=== PATIENT | female | born 1950 | race Caucasian/White ===

== ENCOUNTER 2024-02-22 13:00 | Inpatient (IN) | payer MEDICARE ==
[~2024-02-22] VITALS: Ht 154.9 cm; Wt 68.5 kg
[2024-02-22 14:14] LABS: APPEARANCE,URINE CLOUDY (CLEAR); BILIRUBIN,URINE NEGATIVE (NEGATIVE); COLOR,URINE YELLOW (YELLOW); GLUCOSE, URINE (UA) NEGATIVE (NEGATIVE); KETONES,URINE NEGATIVE (NEGATIVE); LEUKOCYTE ESTERASE ,URINE 25 Leu/uL (NEGATIVE); NITRATE,URINE NEGATIVE (NEGATIVE); OCCULT BLOOD,URINE NEGATIVE (NEGATIVE); PROTEIN,URINE 10 mg/dL (NEGATIVE); UROBILINOGEN,URINE 0.2 mg/dL (0.2-1.0)
[2024-02-22 14:18] LABS: ADD UA MICROSCOPIC YES
[2024-02-22 14:22] LABS: BACTERIA,URINE RARE /HPF (None Seen); MUCUS,URINE RARE LPF (None Seen); RBC,URINE 0-1 /HPF (0-1); SQUAMOUS EPITHELIAL CELL,UR MOD /HPF (0-2)
[2024-02-22 14:37] VITALS: BP 158/61; PULSE 77; RESP 18
[2024-02-22] MEDS ORDERED: AMLO-258 PO (14:44)
[2024-02-22] MEDS ORDERED: DIPH1TAB PO (14:44)
[2024-02-22] MEDS ORDERED: MESA1.2T3 PO (14:44)
[2024-02-22] MEDS ORDERED: ATOR10TA69 PO (14:44)
[2024-02-28] VITALS (26 sets, daily range): BP systolic 69–150; BP diastolic 45–72; PULSE 53–96; RESP 15–19; O2SAT 97
[2024-02-28] MEDS ORDERED: GENTAMICIN PROTOCOL PER PHARMACY IV SCH (06:00)
[2024-02-28] MEDS ORDERED: [UNRECOGNIZED DRUG - OTHER] IV ONE (09:00)
[2024-02-28] MEDS ORDERED: GENTAMICIN SULFATE IV ONE (09:00)
[2024-02-28] MEDS ORDERED: LIDOCAINE PF 100MG/5ML (2%) SYRINGE 5ML ONE (09:04)
[2024-02-28] MEDS ORDERED: GLYCOPYRROLATE 0.2 MG/ML 5 ML VIAL ONE (09:04)
[2024-02-28] MEDS ORDERED: NEOSTIGMINE METHYLSULFATE 1MG/ML IV ONE (09:04)
[2024-02-28] MEDS ORDERED: ONDANSETRON 4MG INJ ONE (09:04)
[2024-02-28] MEDS ORDERED: MIDAZOLAM HCL 1 MG/ML 2ML VIAL ONE (09:04)
[2024-02-28] MEDS ORDERED: SUCCINYLCHOLINE CHLORIDE 20 MG/ML 10 ML VIAL ONE (09:04)
[2024-02-28] MEDS ORDERED: DEXAMETHASONE SOD PHOSPHATE 10MG/ML 1ML VIAL ONE ×2 (09:04→10:43)
[2024-02-28] MEDS ORDERED: PROPOFOL 10 MG/ML 20ML VIAL IV ONE (09:05)
[2024-02-28] MEDS ORDERED: ROCURONIUM BROMIDE 10MG/1ML 5ML VL ONE (09:05)
[2024-02-28] MEDS ORDERED: FENTANYL CITRATE PF 50 MCG/1 ML 2ML VIAL ONE ×2 (09:06→12:06)
[2024-02-28] MEDS: LACTATED RINGERS 1000ML 1,000 ML IV ONE (09:23)
[2024-02-28] MEDS ORDERED: ALBUMIN (HUMAN) 5% 250 ML IV ONE (10:08)
[2024-02-28] MEDS ORDERED: TRANEXAMIC ACID 1000MG/10ML ONE (11:05)
[2024-02-28] MEDS ORDERED: EPINEPHRINE PF 1MG (1:1,000) 1 MG/ML AMP ONE (11:05)
[2024-02-28] MEDS ORDERED: CEFAZOLIN SODIUM 1 GM VIAL ONE ×3 (11:05→12:22)
[2024-02-28] MEDS ORDERED: BUPIVACAINE/PF 0.25% 30ML VIAL IJ ONE (11:06)
[2024-02-28] MEDS: CEFAZOLIN SODIUM 2 GM VIAL IVPB ONE (12:00)
[2024-02-28] MEDS ORDERED: MORPHINE PF 100MG/10ML AMP IV ONE (12:06)
[2024-02-28] MEDS: BUPIVACAINE/EPI/PF 0.25% 30ML VIAL IJ ONE (12:45)
[2024-02-28] MEDS ORDERED: CALCIUM CARB 500MG PO PRN (15:00)
[2024-02-28] MEDS ORDERED: POTASSIUM CHLORIDE 10% ELIXIR 20 MEQ/15 ML UDCUP PO PRN (15:00)
[2024-02-28] MEDS ORDERED: DiphenhydrAMINE HCL 50 MG/ML VIAL IVP PRN (15:00)
[2024-02-28] MEDS ORDERED: TRAMADOL HCL 50 MG TABLET PO PRN (15:00)
[2024-02-28] MEDS ORDERED: KETOROLAC 15MG/ML VIAL (15MG/ML) IV PRN (15:00)
[2024-02-28] MEDS ORDERED: ONDANSETRON 4MG INJ IVP PRN (15:00)
[2024-02-28] MEDS ORDERED: FERROUS FUMARATE 324 MG TABLET PO PRN (15:00)
[2024-02-28] MEDS ORDERED: OXYCODONE HCL 5 MG TAB PO PRN (15:00)
[2024-02-28] MEDS ORDERED: POTASSIUM CHLORIDE 20MEQ/100ML 100 ML IV PRN (15:00)
[2024-02-28] MEDS ORDERED: KCL 20 MEQ ERTAB PO PRN (15:00)
[2024-02-28] MEDS: MEPERIDINE-PF 25 MG/ML SYG ONE ×2 (15:08→15:25)
[2024-02-28] MEDS: CEFAZOLIN SODIUM 2 GM VIAL IVPB SCH (21:25)
[2024-02-28] MEDS: CELECOXIB 200 MG CAP PO SCH (21:25)
[2024-02-28] MEDS: FAMOTIDINE 20MG TAB PO SCH (21:26)
[2024-02-28] MEDS: ASPIRIN 81 MG EC TAB PO SCH (21:26)
[2024-02-28] MEDS: ACETAMINOPHEN 500 MG TABLET PO SCH (21:29)
[2024-02-29] MEDS: 0.9%NACL 1000ML 1,000 ML IV SCH (03:52)
[2024-02-29 04:27] VITALS: BP 126/64; PULSE 56; RESP 17
[2024-02-29 05:58] LABS: HEMATOCRIT 33.1 % (36-48); MEAN CORPUSCULAR HEMOGLOBIN 29.7 pg (27.0-33.0); MEAN CORPUSCULAR HGB CONC 33.2 g/dL (32.0-36.0); MEAN CORPUSCULAR VOLUME 89.5 fL (79-99); RED BLOOD CELL COUNT(AUTO) 3.7 MIL/uL (4.00-5.50); RED CELL DISTRIBUTION WIDTH 12.5 % (11.0-15.5)
[2024-02-29 06:09] LABS: CREATININE 0.9 mg/dL (0.5-1.0); POTASSIUM 3.7 mmol/L (3.5-5.1)
[2024-02-29 07:55] VITALS: BP 130/61; PULSE 67; RESP 19
[2024-02-29 08:00] VITALS: O2SAT 97
[2024-02-29] MEDS: POLYETHYLENE GLYCOL 3350 17 GM POWD.PACK PO SCH (08:52)
[2024-02-29 10:55] VITALS: BP 122/68; PULSE 61; RESP 16
[2024-02-29 16:30] VITALS: BP 132/66; PULSE 61; RESP 20
[2024-02-29] MEDS: OXYCODONE HCL 5 MG TAB PO PRN (16:31)
[2024-02-29 20:00] VITALS: BP 147/59; PULSE 62; RESP 18; O2SAT 94
[2024-02-29] MEDS: AMLODIPINE 5 MG TAB PO SCH (20:56)
[2024-02-29] MEDS: ATORVASTATIN 10 MG TABLET PO SCH (20:56)
[2024-02-29] MEDS: MESALAMINE 1.2 GM PO SCH (21:00)
[2024-03-01] VITALS: BP 123/51; PULSE 69; RESP 18
[2024-03-01 04:00] VITALS: BP 137/66; PULSE 72; RESP 19
[2024-03-01 08:00] VITALS: O2SAT 94
[2024-03-01 08:19] VITALS: BP 114/55; PULSE 80; RESP 16
[2024-03-01] MEDS ORDERED: TRAM50TA4 PO (08:24)
[2024-03-01] MEDS ORDERED: OXYC5 PO (08:24)
[2024-03-01] MEDS ORDERED: CELE200 PO (08:24)
[2024-03-01] MEDS ORDERED: ACET-2743 PO (08:24)
[2024-03-01] MEDS ORDERED: AEC81 PO (08:24)
[2024-03-01 11:32] VITALS: BP 128/64; PULSE 74; RESP 16
[2024-03-02] MEDS ORDERED: BISACODYL 10 MG SUPP.RECT RC PRN (15:00)
== END 2024-03-01 14:20 | DRG 470 ==
LOC: DAHIP 02-28 07:08 → OBSVTOIN 02-28 07:08 → 4BH 02-28 15:55
PROVIDERS: ADMIT Orthopaedic Surgery; ATTEND Orthopaedic Surgery
PROC: 0SRB0JZ Replacement of Left Hip Joint with Synthetic Substitute, Open Approach (ICD-10-PCS; principal; 2024-02-28 11:15)
DX: M16.12 Unilateral primary osteoarthritis, left hip (principal); R26.89 Other abnormalities of gait and mobility; E78.00 Pure hypercholesterolemia, unspecified; I10 Essential (primary) hypertension; Z80.42 Family history of malignant neoplasm of prostate; Z82.49 Family history of ischemic heart disease and other diseases of the circulatory system; Z90.710 Acquired absence of both cervix and uterus
CPT/HCPCS: 36415; 73502; 80048; 81001; 85027; 87641; 93005; G0378; J0171; J0330; J0690; J1100; J1580; J2001; J2175; J2250; J2270; J2274; J2405; J2704; J2710; J3010; J3370; J3490; J7050; J7120; P9045; A4215; A4221; A4222; A4223; A4600; A4649; A4663; A4930; A5120; A6260; A9272; C1713; C1769; C1776; J0665